=== PATIENT | male | born 1960 | race Caucasian/White ===

== ENCOUNTER → 2016-07-30 | Outpatient (CLI) | payer BC ==
[2016-07-30 11:16] VITALS: BP 130/82
== END ==
LOC: MHUC 10:42
PROVIDERS: ATTEND Physician Assistant
DX: R05 Cough (principal)
CPT/HCPCS: 99213

== ENCOUNTER 2016-08-05 18:52 | Emergency (ER) | payer BC ==
[~2016-08-05] VITALS: Ht 195.6 cm; Wt 128.8 kg
--- NOTE | 2016-08-05 19:40 | NUR ---
PATIENT PROVIDED WITH URINAL AND INSTRUCTED ON PROVIDING URINE SPECIMEM.
[2016-08-05 19:55] LABS: BILIRUBIN,URINE Negative (Negative); CLARITY,URINE Clear; COLOR,URINE Yellow; GLUCOSE, URINE (UA) Negative (Negative); LEUKOCYTE ESTERASE ,URINE Negative (Negative); PH,URINE 5.5 (5.0 - 8.0); UROBILINOGEN,URINE 0.2 mg/dL (0.2-1.0)
[2016-08-05 20:00] LABS: BASOPHILS % (AUTO) 0 % (0-2); EOSINOPHILS # (AUTO) 0.1 10^3uL; EOSINOPHILS % (AUTO) 1 % (0-4); LYMPHOCYTES # (AUTO) 1.2 X10^3; MEAN CORPUSCULAR HGB CONC 33.1 g/dL (31.0-37.0); MEAN CORPUSCULAR VOLUME 82 FL (80-100); MONOCYTES # (AUTO) 0.8 X10^3; MONOCYTES % (AUTO) 9 % (3-11); NEUTROPHILS # (AUTO) 7.1 X10^3; NEUTROPHILS % (AUTO) 77 % (51-67); PLATELET COUNT 163 10^3uL (150-450); WHITE BLOOD COUNT 9.18 10^3uL (4.0-11.0)
[2016-08-05 20:03] LABS: RBC,URINE None Seen /HPF; URINE CENTRIFUGED VOLUME 12 mL
[2016-08-05] MEDS ORDERED: DILTIAZEM 25 MG/5 ML (CARDIZEM) VIAL IV STA ×2 (20:20→21:14)
[2016-08-05] MEDS ORDERED: meTOprolol 5 MG/5 ML (LOPRESSOR) VIAL IV ONE (20:20)
[2016-08-05] MEDS ORDERED: SODIUM CHLORIDE FLUSH 10 ML SYR IV PRN (20:20)
[2016-08-05] MEDS: SODIUM CHLORIDE FLUSH 3 ML SYR IV PRN ×2 (20:29→21:41)
--- NOTE | 2016-08-05 20:39 | NUR ---
TO RADIOLOGY PER CART. DR. [place] WAS PREVIOUSLY NOTIFIED OF PATIENT'S LAST COUPLE OF BLOOD PRESSURE READINGS - PHYSICIAN SAYS TO HOLD ON GIVING IV MEDS UNTIL PT'S CXR DONE.
--- NOTE | 2016-08-05 21:44 | NUR ---
REPORT TAKEN FROM CARMEN Sears AND ACCEPTED CARE OF PT
[2016-08-05 21:48] LABS: ALBUMIN 3.5 g/dL (3.4-5.0); ALKALINE PHOSPHATASE 69 U/L (38-126); BUN/CREATININE RATIO 18 (10-20); LIPASE* 138 U/L (23-300); TOTAL PROTEIN 6.4 g/dL (6.4-8.5)
--- NOTE | 2016-08-05 22:05 | NUR ---
DR TERESA ON PHONE W HOSPITALIST
[2016-08-05] MEDS ORDERED: DILTIAZEM IV FOR DRIP 125 MG in SODIUM CHLORIDE 100 ML IV PRN (22:30)
[2016-08-05] MEDS ORDERED: cefTRIAXone SODIUM 1,000 MG in SODIUM CHLORIDE 50 ML IV ONE (22:30)
[2016-08-05] MEDS ORDERED: AZITHROMYCIN 250 MG TAB (ZITHROMAX) PO ONE (22:30)
[2016-08-05] MEDS ORDERED: ENOXAPARIN 120 MG/0.8 ML (LOVENOX) SYR SC ONE (22:30)
[2016-08-05 23:23] VITALS: BP 121/77
[2016-08-05 23:50] LABS: INFLUENZA VIRUS TYPE A ANTIBOD Negative (NEGATIVE); INFLUENZA VIRUS TYPE B ANTIBOD Negative (NEGATIVE)
== END 2016-08-06 00:06 | disposition short-term general hospital (02) ==
LOC: ED 18:56
DX: I48.91 Unspecified atrial fibrillation (principal); R79.89 Other specified abnormal findings of blood chemistry; J18.9 Pneumonia, unspecified organism
CPT/HCPCS: 36415; 71020; 80053; 81003; 81015; 83690; 84484; 85025; 87040; 87502; 93005; 96365; 96372; 96375; 99285; J0696; J1650; J7050; 93010

== ENCOUNTER → 2016-08-05 | Outpatient (CLI) | payer BC | LOC: EMS 23:44 | PROVIDERS: ATTEND Emergency Medicine | DX: I48.91 Unspecified atrial fibrillation (principal); R79.89 Other specified abnormal findings of blood chemistry; J18.9 Pneumonia, unspecified organism ==